=== PATIENT | female | born 1975 | race Caucasian/White ===

== ENCOUNTER → 2016-11-17 10:07 | Outpatient (CLI) | payer BC | END | disposition home or self-care (01) | LOC: D.CT 10:07 | DX: R10.9 Unspecified abdominal pain (principal) ==

== ENCOUNTER 2018-02-23 10:10 | Emergency (ER) | payer BC ==
[~2018-02-23] VITALS: Ht 152.4 cm; Wt 51.8 kg
[2018-02-23 10:17] VITALS: Ht 152.4 cm; Wt 51.8 kg
[2018-02-23] MEDS ORDERED: TIROSINT75 MCG PO (10:19)
[2018-02-23] MEDS ORDERED: PROMETRIUM100 MG PO (10:19)
[2018-02-23] MEDS ORDERED: CARAFATE1 G PO (10:19)
[2018-02-23] MEDS ORDERED: ESTRACE 0.5 MG0.5 MG PO (10:19)
[2018-02-23 10:34] LABS: BASOPHILS 0.4 % (0-2); EOSINOPHILS 2.9 % (0-7); HEMATOCRIT 41.7 % (36.0-48.0); HEMOGLOBIN 14.5 g/dL (12-16); IMMATURE GRANULOCYTES 0.2 % (0-5); LYMPHOCYTES 25.2 % (15-50); MCH 32.7 pg (26.0-34.0); MCHC 34.8 g/dL (31.0-37.0); MCV 94.1 fL (80.0-100.0); MEAN PLATELET VOLUME 9.6 fL (7.4-10.4); NEUTROPHILS 66.3 % (40-80); PLATELET COUNT 403 10x3/uL (130-400); RBC 4.43 10x6/uL (4.00-5.40); RDW 13.4 % (11.5-14.5); WBC 11.6 10x3/uL (4.8-10.8)
[2018-02-23 10:53] LABS: ALBUMIN 3.6 g/dL (3.4-5.0); ALKALINE PHOSPHATASE 56 U/L (46-116); ALT (SGPT) 27 U/L (10-68); BILIRUBIN - TOTAL 0.49 mg/dL (0.2-1.3); CALC OSMOLALITY 269 mosm/kg (275-300); CALCIUM 8.6 mg/dL (8.5-10.1); CARBON DIOXIDE 26.2 mmol/L (21.0-32.0); CHLORIDE - SERUM 102 mmol/L (98-107); CREATININE - SERUM 0.8 mg/dL (0.6-1.3); GLUCOSE 109 mg/dL (74-106); POTASSIUM - SERUM 3.4 mmol/L (3.5-5.1); PROTEIN - SERUM 7.5 g/dL (6.4-8.2); SODIUM 135 mmol/L (136-145); UREA NITROGEN 11 mg/dL (7-18); eGFR NON AFRICAN AMERICAN 82 mL/min (90-120)
[2018-02-23 11:06] LABS: CKMB 0.2 U/L (0.0-3.6); CREATINE KINASE 37 UL (21-215); THYROID STIMULATING HORMONE 1.41 uIU/mL (0.36-3.74); TROPONIN-I < 0.017 ng/mL (0.000-0.060)
[2018-02-23 12:48] VITALS: BP 140/90
== END 2018-02-23 12:48 | disposition home or self-care (01) ==
LOC: D.ER 10:10
PROVIDERS: Family Medicine
DX: R00.2 Palpitations (principal); E87.6 Hypokalemia; F17.200 Nicotine dependence, unspecified, uncomplicated; E05.00 Thyrotoxicosis with diffuse goiter without thyrotoxic crisis or storm

== ENCOUNTER 2018-03-22 04:20 | Emergency (ER) | payer BC ==
[~2018-03-22] VITALS: Ht 152.4 cm; Wt 51.4 kg
[~2018-03-22 04:20] MED LIST: CARAFATE1 G PO; ESTRACE 0.5 MG0.5 MG PO; PROMETRIUM100 MG PO; TIROSINT75 MCG PO
[2018-03-22 04:25] VITALS: Ht 152.4 cm; Wt 51.4 kg
[2018-03-22 05:10] LABS: BASOPHILS 0.1 % (0-2); HEMATOCRIT 42.9 % (36.0-48.0); HEMOGLOBIN 15.2 g/dL (12-16); IMMATURE GRANULOCYTES 0.2 % (0-5); LYMPHOCYTES 15.5 % (15-50); MCH 32.8 pg (26.0-34.0); MCHC 35.4 g/dL (31.0-37.0); MCV 92.7 fL (80.0-100.0); MEAN PLATELET VOLUME 10.5 fL (7.4-10.4); MONOCYTES 4.6 % (2-11); NEUTROPHILS 78.6 % (40-80); PLATELET COUNT 415 10x3/uL (130-400); RBC 4.63 10x6/uL (4.00-5.40); WBC 16.2 10x3/uL (4.8-10.8)
[2018-03-22 05:12] LABS: APPEARANCE CLEAR (CLEAR); BILIRUBIN NEGATIVE (NEGATIVE); COLOR YELLOW (YELLOW); GLUCOSE NEGATIVE (NEGATIVE); KETONE NEGATIVE (NEGATIVE); NITRITE NEGATIVE (NEGATIVE); PROTEIN NEGATIVE (NEGATIVE); UROBILINOGEN NORMAL (NORMAL)
[2018-03-22 05:13] LABS: BACTERIA MODERATE /hpf (NONE SEEN); EPITHELIAL CELLS 0-5 /hpf (0-5); RED CELLS - URINE 0-5 /hpf (0-5); WHITE CELLS - URINE 0-5 /hpf (0-5)
[2018-03-22 05:38] LABS: ALBUMIN 3.1 g/dL (3.4-5.0); ALKALINE PHOSPHATASE 49 U/L (46-116); ALT (SGPT) 20 U/L (10-68); AMYLASE - SERUM 36 U/L (25-115); BILIRUBIN - TOTAL 0.43 mg/dL (0.2-1.3); CALC OSMOLALITY 270 mosm/kg (275-300); CALCIUM 8.2 mg/dL (8.5-10.1); CHLORIDE - SERUM 106 mmol/L (98-107); CREATININE - SERUM 0.7 mg/dL (0.6-1.3); GLUCOSE 101 mg/dL (74-106); LIPASE 82 U/L (73-393); POTASSIUM - SERUM 4.1 mmol/L (3.5-5.1); PROTEIN - SERUM 6.5 g/dL (6.4-8.2); SODIUM 136 mmol/L (136-145); UREA NITROGEN 9 mg/dL (7-18); eGFR NON AFRICAN AMERICAN > 90 mL/min (90-120)
[2018-03-22] MEDS ORDERED: ZOFRAN4 MG PO (06:50)
[2018-03-22] MEDS ORDERED: CIPRO500 MG PO (06:50)
[2018-03-22] MEDS ORDERED: ULTRAM50 MG PO (06:50)
[2018-03-22 07:12] VITALS: BP 136/81
== END 2018-03-22 07:12 | disposition home or self-care (01) ==
LOC: D.ER 04:20
PROVIDERS: Family Medicine
DX: K52.9 Noninfective gastroenteritis and colitis, unspecified (principal); E05.00 Thyrotoxicosis with diffuse goiter without thyrotoxic crisis or storm; F17.200 Nicotine dependence, unspecified, uncomplicated

== ENCOUNTER 2018-11-28 02:31 | Emergency (ER) | payer BC ==
[~2018-11-28 02:31] MED LIST changes: +CIPRO500 MG PO; +ULTRAM50 MG PO; +ZOFRAN4 MG PO
[2018-11-28 02:35] VITALS: BMI 22.3
[2018-11-28 03:15] LABS: HCG SERUM NEGATIVE (NEGATIVE); HEMOGLOBIN 14.9 g/dL (12-16); LYMPHOCYTES 23.9 % (15-50); MCH 33.8 pg (26.0-34.0); MCHC 36.3 g/dL (31.0-37.0); MEAN PLATELET VOLUME 9.1 fL (7.4-10.4); NEUTROPHILS 67.4 % (40-80); PLATELET COUNT 359 10x3/uL (130-400); RBC 4.41 10x6/uL (4.00-5.40); WBC 13.3 10x3/uL (4.8-10.8)
[2018-11-28 03:21] LABS: ALBUMIN 3.5 g/dL (3.4-5.0); ALKALINE PHOSPHATASE 53 U/L (46-116); ALT (SGPT) 26 U/L (10-68); BILIRUBIN - TOTAL 0.67 mg/dL (0.2-1.3); CALC OSMOLALITY 278 mosm/kg (275-300); CALCIUM 8.8 mg/dL (8.5-10.1); CARBON DIOXIDE 26.8 mmol/L (21.0-32.0); CHLORIDE - SERUM 102 mmol/L (98-107); CREATININE - SERUM 0.8 mg/dL (0.6-1.3); GLUCOSE 120 mg/dL (74-106); POTASSIUM - SERUM 3.4 mmol/L (3.5-5.1); PROTEIN - SERUM 7.7 g/dL (6.4-8.2); SODIUM 139 mmol/L (136-145); UREA NITROGEN 13 mg/dL (7-18); eGFR NON AFRICAN AMERICAN 82 mL/min (90-120)
[2018-11-28 03:28] LABS: APPEARANCE CLEAR (CLEAR); BILIRUBIN NEGATIVE (NEGATIVE); COLOR YELLOW (YELLOW); GLUCOSE NEGATIVE (NEGATIVE); KETONE NEGATIVE (NEGATIVE); NITRITE NEGATIVE (NEGATIVE); PROTEIN NEGATIVE (NEGATIVE); SPECIFIC GRAVITY 1.015 (1.005-1.020); UROBILINOGEN NORMAL (NORMAL)
[2018-11-28 03:35] LABS: RED CELLS - URINE 0-5 /hpf (0-5); WHITE CELLS - URINE OCC /hpf (0-5)
[2018-11-28 03:36] LABS: BACTERIA MODERATE /hpf (NONE SEEN); EPITHELIAL CELLS 0-5 /hpf (0-5)
[2018-11-28] MEDS ORDERED: FLAGYL500 MG PO (05:44)
[2018-11-28] MEDS ORDERED: CIPRO500 MG PO (05:44)
[2018-11-28] MEDS ORDERED: PERCOCET 5-3251 TAB PO (05:44)
[2018-11-28 06:01] VITALS: BP 115/70
[2018-11-30 13:06] VITALS: BMI 22.2
== END 2018-11-28 05:58 | disposition home or self-care (01) ==
LOC: D.ER 02:31
PROVIDERS: Family Medicine
DX: K57.92 Diverticulitis of intestine, part unspecified, without perforation or abscess without bleeding (principal); D72.829 Elevated white blood cell count, unspecified

== ENCOUNTER 2018-11-29 11:08 | Inpatient (IN) | payer BC ==
[~2018-11-29] VITALS: Ht 152.4 cm; Wt 51.7 kg
[~2018-11-29 11:08] MED LIST changes: +FLAGYL500 MG PO; +PERCOCET 5-3251 TAB PO
[2018-11-29 12:00] LABS: BASOPHILS 0.2 % (0-2); EOSINOPHILS 1.1 % (0-7); HEMATOCRIT 39.6 % (36.0-48.0); HEMOGLOBIN 13.9 g/dL (12-16); IMMATURE GRANULOCYTES 0.2 % (0-5); LYMPHOCYTES 12.4 % (15-50); MCH 32.6 pg (26.0-34.0); MCHC 35.1 g/dL (31.0-37.0); MEAN PLATELET VOLUME 9.3 fL (7.4-10.4); MONOCYTES 5.7 % (2-11); NEUTROPHILS 80.4 % (40-80); PLATELET COUNT 336 10x3/uL (130-400); RBC 4.26 10x6/uL (4.00-5.40); RDW 13.3 % (11.5-14.5)
[2018-11-29 12:05] LABS: WBC 17.5 10x3/uL (4.8-10.8)
[2018-11-29 12:19] LABS: ALBUMIN 3.4 g/dL (3.4-5.0); ALKALINE PHOSPHATASE 52 U/L (46-116); ALT (SGPT) 20 U/L (10-68); AMYLASE - SERUM 31 U/L (25-115); BILIRUBIN - TOTAL 0.74 mg/dL (0.2-1.3); CALC OSMOLALITY 276 mosm/kg (275-300); CALCIUM 8.6 mg/dL (8.5-10.1); CARBON DIOXIDE 25.3 mmol/L (21.0-32.0); CHLORIDE - SERUM 104 mmol/L (98-107); CREATININE - SERUM 0.8 mg/dL (0.6-1.3); GLUCOSE 97 mg/dL (74-106); LIPASE 66 U/L (73-393); POTASSIUM - SERUM 3.4 mmol/L (3.5-5.1); PROTEIN - SERUM 7.4 g/dL (6.4-8.2); SODIUM 139 mmol/L (136-145); TROPONIN-I < 0.017 ng/mL (0.000-0.060); UREA NITROGEN 10 mg/dL (7-18); eGFR NON AFRICAN AMERICAN 82 mL/min (90-120)
[2018-11-29 12:48] LABS: APPEARANCE HAZY (CLEAR); BILIRUBIN NEGATIVE (NEGATIVE); COLOR YELLOW (YELLOW); GLUCOSE NEGATIVE (NEGATIVE); KETONE LARGE mg/dL (NEGATIVE); NITRITE NEGATIVE (NEGATIVE); PROTEIN TRACE mg/dL (NEGATIVE); SPECIFIC GRAVITY 1.015 (1.005-1.020); UROBILINOGEN NORMAL (NORMAL)
[2018-11-29 12:49] LABS: BACTERIA MODERATE /hpf (NONE SEEN); EPITHELIAL CELLS 0-5 /hpf (0-5); RED CELLS - URINE 0-5 /hpf (0-5)
[2018-11-29 12:50] LABS: WHITE CELLS - URINE RARE /hpf (0-5)
--- NOTE | 2018-11-29 14:54 | NUR ---
PT SITTING IN HIGH UMANZOR'S, RESPIRATIONS EVEN AND UNLABORED. NO SIGNS OF DISTRESS, CALL LIGHT IN REACH. IV FLUIDS INFUSING WITHOUT SIGNS OF INFILTRATION. DENIES ANY NEEDS AT THIS TIME. WILL CONTINUE TO MONITOR.
[2018-11-29 18:00] VITALS: BP 109/70; BMI 22.3
[2018-11-29 19:49] VITALS: BP 124/81
--- NOTE | 2018-11-29 19:57 | NUR ---
EVENING ROUNDS MADE. PT SITTING UP IN BED. FAMILY AT BEDSIDE. DENIES PAIN AT THIS TIME. FALL PRECAUTIONS IN PLACE. BED LOWERED AND LOCKED. CL IN REACH. WILL CTM.
--- NOTE | 2018-11-29 19:58 | NUR ---
PT OFF FLOOR AT THIS TIME WALKING WITH FAMILY
--- NOTE | 2018-11-30 00:45 | NUR ---
REST QUIETLY IN BED. CALL LIGHT IN REACH.
[2018-11-30 00:50] VITALS: BP 101/59
[2018-11-30 06:15] LABS: BASOPHILS 0.3 % (0-2); EOSINOPHILS 3.6 % (0-7); HEMATOCRIT 33.8 % (36.0-48.0); HEMOGLOBIN 11.5 g/dL (12-16); IMMATURE GRANULOCYTES 0.2 % (0-5); LYMPHOCYTES 23.5 % (15-50); MCV 94.2 fL (80.0-100.0); MEAN PLATELET VOLUME 9.8 fL (7.4-10.4); MONOCYTES 6.8 % (2-11); NEUTROPHILS 65.6 % (40-80); RBC 3.59 10x6/uL (4.00-5.40); RDW 13.4 % (11.5-14.5)
[2018-11-30 06:27] LABS: PLATELET COUNT 266 10x3/uL (130-400); WBC 10.6 10x3/uL (4.8-10.8)
[2018-11-30 06:54] LABS: ALBUMIN 2.6 g/dL (3.4-5.0); ALKALINE PHOSPHATASE 41 U/L (46-116); ALT (SGPT) 17 U/L (10-68); BILIRUBIN - TOTAL 0.43 mg/dL (0.2-1.3); CALC OSMOLALITY 275 mosm/kg (275-300); CALCIUM 7.8 mg/dL (8.5-10.1); CARBON DIOXIDE 24.9 mmol/L (21.0-32.0); CHLORIDE - SERUM 108 mmol/L (98-107); CREATININE - SERUM 0.6 mg/dL (0.6-1.3); GLUCOSE 83 mg/dL (74-106); MAGNESIUM - SERUM 1.8 mg/dL (1.8-2.4); SODIUM 139 mmol/L (136-145); UREA NITROGEN 9 mg/dL (7-18); eGFR NON AFRICAN AMERICAN > 90 mL/min (90-120)
[2018-11-30 06:56] LABS: POTASSIUM - SERUM 4.4 mmol/L (3.5-5.1)
--- NOTE | 2018-11-30 07:00 | NUR ---
INITIAL ROUNDING, THE PATIENT AND HER SPOUSE ARE UP WALKING IN THE [place], HEADED OUTSIDE.
[2018-11-30 09:09] VITALS: BP 108/72
--- NOTE | 2018-11-30 10:32 | NUR ---
THE PATIENT HAS BEEN DISCONNECTED FROM IV AND THE TELE REMOVED
--- NOTE | 2018-11-30 13:02 | MORECARE ---
CASE MANAGEMENT DISCHARGE SUMMARY PATIENT: ELIAS SIEGEL UNIT: [id number] ADM DATE: 11/29/18 AGE: 43 : [birth year] SEX: F ROOM/BED: D.1204 AUTHOR: APOLINAR CARVALHO PHYSICIAN: REFERRING PHYSICIAN: BRIAN COCHRAN DO DATE OF SERVICE: 11/30/18 Discharge Plan Patient Name: ELIAS SIEGEL [facility] [facility] 1975 Planned Disposition: Home Anticipated Discharge Date: Discharge Date: Expected LOS: Initial Reviewer: [email or web address] Initial Review Date: 11/30/2018 Generated: 11/30/18 2:02 pm DCPIA - Discharge Planning Initial Assessment Updated by [email or web address]: Katie Hurt on 11/30/18 12:59 pm * Is the patient Alert and Oriented? Yes * How many steps to enter\exit or inside your home? * PCP DAVIS * Pharmacy [facility] * Preadmission Environment Home with Family * ADLs Independent * Equipment None * List name and contact numbers for known caregivers / representatives who currently or will assist patient after discharge: GASTON SIEGEL -[facility]- [phone] * Verbal permission to speak to the caregivers and representatives has been obtained from the patient. Yes * Community resources currently utilized None * Additional services required to return to the preadmission environment? No * Can the patient safely return to the preadmission environment? Yes * Has this patient been hospitalized within the prior 30 days at any hospital? No Patient Name: ELIAS SIEGEL Page [phone] at 1302 All edits/amendments must be made on the electronic document DICTATION DATE: 11/30/18 1301 COMMUNICATIONS SUPERINTENDENT: CHUCKY 11/30/18 1301 RPT#: [id number] DC DATE: STATUS: ADM IN [facility] [address] [place] [address] END OF REPORT
[2018-11-30 13:06] VITALS: Ht 152.4 cm; Wt 51.7 kg
--- NOTE | 2018-11-30 13:09 | MORECARE ---
CASE MANAGEMENT DISCHARGE SUMMARY PATIENT: ELIAS SIEGEL UNIT: [id number] ADM DATE: 11/29/18 AGE: 43 : [birth year] SEX: F ROOM/BED: D.1204 AUTHOR: DEVEN,DOC PHYSICIAN: REFERRING PHYSICIAN: BRIAN COCHRAN DO DATE OF SERVICE: 11/30/18 Discharge Plan Patient Name: ELIAS SIEGEL Facility: [facility]:[place] : 1975 Planned Disposition: Home Anticipated Discharge Date: Discharge Date: Expected LOS: Initial Reviewer: [email or web address] Initial Review Date: 11/30/2018 Generated: 11/30/18 2:08 pm Comments DCP- Discharge Planning Updated by [email or web address]: Katie Hurt on 11/30/18 12:[address] Patient Name: ELIAS SIEGEL Admission Status: ER Accout number: [id number] Admission Date: 11-29-2018 : 1975 Admission Diagnosis: Attending: BRIAN COCHRAN Current LOS: 1 Anticipated DC Date: Planned Disposition: Home Primary Insurance: [employer] O Discharge Planning Comments: CM met with patient and at bedside after explaining CM role and obtaining verbal consent. Patient states she lives at home with her and plans to return there upon discharge. Patient denies any use of community resources or needs at this time. Patient denies any discharge needs. CM will continue to follow and assist as needed with discharge planning / needs. Registered Client Associate: Katie Hurt DCPIA - Discharge Planning Initial Assessment Updated by [email or web address]: Katie Hurt on 11/30/18 12:59 pm * Is the patient Alert and Oriented? Yes * How many steps to enter\exit or inside your home? * PCP DAVIS * Pharmacy [facility] * Preadmission Environment Home with Family * ADLs Independent * Equipment None * List name and contact numbers for known caregivers / representatives who currently or will assist patient after discharge: GASTON SIEGEL -[facility]- [phone] * Verbal permission to speak to the caregivers and representatives has been obtained from the patient. Yes * Community resources currently utilized None * Additional services required to return to the preadmission environment? No * Can the patient safely return to the preadmission environment? Yes * Has this patient been hospitalized within the prior 30 days at any hospital? No Last DP export: 11/30/18 12:02 p Patient Name: ELIAS SIEGEL Page [phone] at 1309 All edits/amendments must be made on the electronic document DICTATION DATE: 11/30/18 1308 TOOL FILER: CHUCKY 11/30/18 1308 RPT#: [id number] DC DATE: STATUS: ADM IN [facility] [address] [place] [address] END OF REPORT
--- NOTE | 2018-11-30 13:18 | NUR ---
PATIENT SHOWERED, AND VISITING WITH FAMILY
[2018-11-30 16:42] VITALS: BP 117/85
--- NOTE | 2018-11-30 19:16 | NUR ---
EVENING ROUNDS MADE. PT SITTING UP IN BED RESTING, FAMILY AT BEDSIDE. PT DENIES PAIN AT THIS TIME. PT C/O HAVING DIARRHEA. PT CONCERNED ABOUT HER ORDER FOR POGESTERONE 200 MG HS THAT SHE TAKES AT HOME, AND SHE STATED THAT SHE WOULD LIKE TO GET SOME TYLENOL PM TO HELP HER SLEEP. INFORMED PT THAT I WOULD CALL THE MAINTENANCE PAINTER PROVIDER AND GET HER MEDICATIONS ORDERED. NO FURTHER CONCERNS AT THIS TIME. BED LOWERED AND LOCKED. CL IN REACH. WILL CTM.
--- NOTE | 2018-11-30 19:22 | NUR ---
KHANG WALKER PAGED, ORDERS GIVEN TO CHANGED POGESTERONE TO 200MG AT NIGHT AND ORDERS GIVEN FOR TYLENOL PM. NO FURTHER ORDERS AT THIS TIME. WILL CTM.
[2018-11-30 20:09] VITALS: BP 110/74
--- NOTE | 2018-11-30 20:50 | NUR ---
IV TO R FA INFILTRATED. IV REMOVED. TIP INTACT. NEW IV SITED TO [place] AC, 22 G, PATENT, NS @ 125, DRSG C/D/I. PT DENIES PAIN AT THIS TIME. WILL CTM.
--- NOTE | 2018-11-30 20:51 | NUR ---
VITALS STABLE PT TOOK MEDS WITHOUT DIFFICULTY. TYLENOL PM GIVEN WITH NIGHT MEDS TO HELP PT SLEEP. PT DENIES FURTHER CONCERNS AT THIS TIME. BED LOWERED AND LOCKED. CL IN REACH. WILL CTM.
[2018-12-01 01:02] VITALS: BP 105/67
[2018-12-01 06:09] VITALS: BP 104/57
--- NOTE | 2018-12-01 06:42 | NUR ---
PT HAVING DARK BLOODY DIARRHEA, PT CONCERNED ABOUT STOOLS. PT HAS HAD X2 DIARRHEA EPISODES LAST NIGHT.
[2018-12-01 07:00] LABS: BASOPHILS 0.6 % (0-2); EOSINOPHILS 3.2 % (0-7); HEMATOCRIT 37.2 % (36.0-48.0); HEMOGLOBIN 12.6 g/dL (12-16); IMMATURE GRANULOCYTES 0.1 % (0-5); LYMPHOCYTES 26.1 % (15-50); MCH 31.7 pg (26.0-34.0); MCHC 33.9 g/dL (31.0-37.0); MCV 93.7 fL (80.0-100.0); MEAN PLATELET VOLUME 9.9 fL (7.4-10.4); MONOCYTES 5.7 % (2-11); NEUTROPHILS 64.3 % (40-80); PLATELET COUNT 317 10x3/uL (130-400); RBC 3.97 10x6/uL (4.00-5.40); RDW 13.1 % (11.5-14.5); WBC 10.4 10x3/uL (4.8-10.8)
[2018-12-01 07:10] LABS: ALBUMIN 3.1 g/dL (3.4-5.0); ALKALINE PHOSPHATASE 46 U/L (46-116); ALT (SGPT) 16 U/L (10-68); BILIRUBIN - TOTAL 0.32 mg/dL (0.2-1.3); CALCIUM 8.4 mg/dL (8.5-10.1); CARBON DIOXIDE 25.6 mmol/L (21.0-32.0); CHLORIDE - SERUM 107 mmol/L (98-107); GLUCOSE 106 mg/dL (74-106); MAGNESIUM - SERUM 1.8 mg/dL (1.8-2.4); PROTEIN - SERUM 6.9 g/dL (6.4-8.2); SODIUM 140 mmol/L (136-145)
--- NOTE | 2018-12-01 07:30 | NUR ---
REPORT RECEIVED. WILL CONTINUE WITH POC. PT CURRENTLY LYING SEMI FOWLERS. CALL LIGHT W/I REACH. FAMILY AT BEDSIDE. PT IS AAO AND UP AD KINGS. RR EVEN AND UNLABORED ON RA. NS INFUSING @125ML/HR VIA L.AC PIV. NO S/S OF DISTRESS NOTED. PT DENIES ANY NEEDS. WILL CTM.
[2018-12-01 07:32] LABS: CALC OSMOLALITY 275 mosm/kg (275-300); CREATININE - SERUM 0.8 mg/dL (0.6-1.3); POTASSIUM - SERUM 3.4 mmol/L (3.5-5.1); UREA NITROGEN 5 mg/dL (7-18); eGFR NON AFRICAN AMERICAN 82 mL/min (90-120)
[2018-12-01 07:48] VITALS: BP 128/86
[2018-12-01 11:18] VITALS: BP 128/83
[2018-12-01 15:53] VITALS: BP 127/79
--- NOTE | 2018-12-01 19:36 | NUR ---
GREETED PATIENT AND INTRODUCED MYSELF. PATIENT IS LAYING IN BED IN SUPINE POSITION. FAMILY MEMBER AT BEDSIDE. DENIES ANY NEEDS AT THIS TIME. CALL LIGHT IN REACH.
[2018-12-01 20:18] VITALS: BP 123/83
[2018-12-02 00:44] VITALS: BP 112/79
--- NOTE | 2018-12-02 02:17 | NUR ---
PATIENT AWAKE AND TAKING A WALK IN THE UNIT. STATED HER BACK WAS HURTING BUT DIDNT WANT TO TAKE PAIN MEDICATION AT THIS TIME. WCTM.
--- NOTE | 2018-12-02 03:47 | NUR ---
PATIENT REFUSED 0400 VITALS.
[2018-12-02 06:51] LABS: BASOPHILS 0.7 % (0-2); EOSINOPHILS 4.3 % (0-7); HEMATOCRIT 37.5 % (36.0-48.0); HEMOGLOBIN 13.3 g/dL (12-16); IMMATURE GRANULOCYTES 0.2 % (0-5); LYMPHOCYTES 28.1 % (15-50); MCH 32.7 pg (26.0-34.0); MCHC 35.5 g/dL (31.0-37.0); MCV 92.1 fL (80.0-100.0); MEAN PLATELET VOLUME 9.4 fL (7.4-10.4); NEUTROPHILS 59.7 % (40-80); PLATELET COUNT 328 10x3/uL (130-400); RBC 4.07 10x6/uL (4.00-5.40); RDW 13.2 % (11.5-14.5); WBC 8.9 10x3/uL (4.8-10.8)
[2018-12-02 07:06] LABS: ALBUMIN 3.3 g/dL (3.4-5.0); ALKALINE PHOSPHATASE 46 U/L (46-116); ALT (SGPT) 18 U/L (10-68); BILIRUBIN - TOTAL 0.37 mg/dL (0.2-1.3); CALC OSMOLALITY 275 mosm/kg (275-300); CALCIUM 8.9 mg/dL (8.5-10.1); CARBON DIOXIDE 26.1 mmol/L (21.0-32.0); CHLORIDE - SERUM 104 mmol/L (98-107); CREATININE - SERUM 0.8 mg/dL (0.6-1.3); GLUCOSE 94 mg/dL (74-106); MAGNESIUM - SERUM 1.8 mg/dL (1.8-2.4); POTASSIUM - SERUM 3.4 mmol/L (3.5-5.1); PROTEIN - SERUM 7.4 g/dL (6.4-8.2); SODIUM 139 mmol/L (136-145); UREA NITROGEN 6 mg/dL (7-18); eGFR NON AFRICAN AMERICAN 82 mL/min (90-120)
[2018-12-02 09:20] VITALS: BP 115/71
--- NOTE | 2018-12-02 10:06 | NUR ---
MORNING ASSESSMENT COMPLETE. SEE ASSESSMENT SANIA FOR FURHTER DETAILS. PT LYING IN BED AAO X4 TO PERSON, PLACE, TIME, AND SITUATION. DENIES NEEDS AT THIS TIME. CL IN REACH. SIDE RAILS UP X3 FOR PT SAEFTY. BED IN LOWEST POSITION. [facility] POSS D/C HOME TODAY
--- NOTE | 2018-12-02 11:58 | NUR ---
PT D/C HOME VIA W/C WITH FAM MEMBER. WENT OVER ALL D/C INSTRUCTIONS. DENIES FURTHER NEEDS.
--- NOTE | 2018-12-03 10:59 | MORECARE ---
CASE MANAGEMENT DISCHARGE SUMMARY PATIENT: ELIAS SIEGEL UNIT: [id number] ADM DATE: 11/29/18 AGE: 43 : 73 SEX: F ROOM/BED: D.1204 AUTHOR: DEVENDOC PHYSICIAN: REFERRING PHYSICIAN: BRIAN COCHRAN DO DATE OF SERVICE: 12/03/18 Discharge Plan Patient Name: ELIAS SIEGEL Facility: [facility]:[place] : 1975 Planned Disposition: Home Anticipated Discharge Date: Discharge Date: 12/02/2018 Expected LOS: Initial Reviewer: [id number] Initial Review Date: 11/30/2018 Generated: 12/03/18 11:59 am Comments DCP- Discharge Planning Updated by [email or web address]: Katie Hurt on 11/30/18 12:[address] Patient Name: ELIAS SIEGEL Admission Status: ER Accout number: [id number] Admission Date: 11-29-2018 : 1975 Admission Diagnosis: Attending: BRIAN COCHRAN Current LOS: 1 Anticipated DC Date: Planned Disposition: Home Primary Insurance: [employer] O Discharge Planning Comments: CM met with patient and at bedside after explaining CM role and obtaining verbal consent. Patient states she lives at home with her and plans to return there upon discharge. Patient denies any use of community resources or needs at this time. Patient denies any discharge needs. CM will continue to follow and assist as needed with discharge planning / needs. Polisher Balance Screwhead: Katie Hurt DCPIA - Discharge Planning Initial Assessment Updated by [email or web address]: Katie Hurt on 11/30/18 12:59 pm * Is the patient Alert and Oriented? Yes * How many steps to enter\exit or inside your home? * PCP DAVIS * Pharmacy [facility] * Preadmission Environment Home with Family * ADLs Independent * Equipment None * List name and contact numbers for known caregivers / representatives who currently or will assist patient after discharge: GASTON SIEGEL -[facility]- [phone] * Verbal permission to speak to the caregivers and representatives has been obtained from the patient. Yes * Community resources currently utilized None * Additional services required to return to the preadmission environment? No * Can the patient safely return to the preadmission environment? Yes * Has this patient been hospitalized within the prior 30 days at any hospital? No Last DP export: 11/30/18 12:09 p Patient Name: ELIAS SIEGEL Page 54540 at 1059 All edits/amendments must be made on the electronic document DICTATION DATE: 12/03/18 105 TURPENTINE FARMER: CHUCKY 12/03/18 1059 RPT#: [id number] DC DATE:12/02/18 STATUS: DIS IN [facility] [address] [place] [address] END OF REPORT
== END 2018-12-02 11:58 | disposition home or self-care (01) | DRG 392 ==
LOC: D.ER 11:08 → D.M3 16:46
PROVIDERS: Family Medicine; ADMIT Family Medicine; ATTEND Family Medicine
DX: K57.92 Diverticulitis of intestine, part unspecified, without perforation or abscess without bleeding (principal); E87.6 Hypokalemia; E03.9 Hypothyroidism, unspecified

== ENCOUNTER → 2019-12-06 08:20 | Outpatient (CLI) | payer BC ==
[2018-11-30 13:06] VITALS: BMI 22.2
--- NOTE | ~2019-12-06 | EC ---
PATIENT:ELIAS SIEGEL DATE OF SERVICE: 12/06/19 SEX: F MEDICAL RECORD: [id number] DATE OF : [birth year] [facility] AGE OF PATIENT: 44 ADMISSION DATE: 12/06/19 REFERRING PHYSICIAN: INTERPRETING PHYSICIAN: SALVATORE MAYA MD ECHOCARDIOGRAM REPORT ECHO CHARGES 4 ECHO COMPLETE Date: 12/06/19 CLINICAL DIAGNOSIS: MURMUR ECHOCARDIOGRAPHIC MEASUREMENTS (adult normal given) AC root (d.<3.7cm) 2.8 cm LV Septum d (<1.2 cm> 1.0 cm Valve Excursion 1.1 cm LV Septum (systole) 1.2 cm Left Atria (s.<4.0cm> 3.4 cm LVPW d(<1.2cm) 1.1 cm RV (d.<2.3cm) 3.1 cm LVPW (sytole) 1.3 cm LV diastole(<5.6CM) 4.7 cm MV E-F(>70mm/sec) cm LV systole 3.5 cm LVOT Diameter 1.9 cm MV exc.(>10mm) cm Est.ejection fraction (50-75%) % DOPPLER: LVIT cm/sec A 55.0 cm/sec E 64.0 cm/sec LA cm/sec RVSP 23 mmHg LVOT 93 cm/sec AOP1/2T m/s Asc. Ao 107 cm/sec RVOT 76 cm/sec RA cm/sec PA 91 cm/sec AV Gradient Peak 4.59 mmHg AV Mean 2.38 mmHg AV Area 2.7 cm MV Gradient Peak 2.78 mmHg MV Mean 1.21 mmHg MV Area cm COMMENTS: Dining Host: 2 LELE HU Half Sole Fitter: 3 Dr. Pascal TAPE# PACS Pericardial Effusion N DATE OF SERVICE: Adequate 2D, color flow imaging, spectral Doppler, and M-Mode. No LVH. LV internal dimensions are normal. Wall motion is normal. EF is greater than or equal to 55%. Aortic valve is tricuspid. No evidence of stenosis by Doppler interrogation. Left atrium normal at 3.4 cm. Mitral valve shows no prolapse. Trace MR. Right-sided chambers are grossly normal. Trace TR. ECHOCARDIOGRAM REPORT [id number] ELIAS SIEGEL TRANSINT:[id number] Voice Confirmation ID: [id number] DOCUMENT ID: [id number] SALVATORE MAYA MD CC: [id number] DICTATION DATE: 12/06/19 1513 GAS BOOSTER ENGINEER: 12/06/19 1823 [facility] [address] [place] [id number]
== END | disposition home or self-care (01) ==
LOC: D.HCCECHO 08:20
PROVIDERS: ATTEND Internal Medicine Interventional Cardiology
DX: R01.1 Cardiac murmur, unspecified (principal)